=== PATIENT | female | born 1990 | race Caucasian/White ===

== ENCOUNTER 2023-09-24 08:00 | Outpatient (CLI) | payer BC ==
[2023-09-24 17:19] LABS: BILIRUBIN,URINE NEGATIVE (NEGATIVE); GLUCOSE, URINE (UA) NEGATIVE (NEGATIVE); KETONES,URINE (UA) TRACE mg/dL (NEGATIVE); LEUKOCYTE ESTERASE, URINE SMALL (NEGATIVE); NITRITE,URINE NEGATIVE (NEGATIVE); OCCULT BLOOD,URINE MODERATE (NEGATIVE); PROTEIN,URINE NEGATIVE (NEGATIVE); UROBILINOGEN,URINE 0.2 (NORMAL) E.U./dL (NORMAL)
[2023-09-24 17:21] LABS: CLARITY,URINE HAZY (CLEAR)
[2023-09-24 17:22] LABS: HCG UR QUAL NEGATIVE
[2023-09-24 17:32] LABS: BACTERIA,URINE Few /HPF (None Seen); RBC,URINE TNTC /HPF (0-5); SQUAMOUS EPITHELIAL CELL,UR MANY Squamous (<= Few)
== END 2023-09-24 23:59 | disposition home or self-care (01) ==
LOC: LAB.WCP 08:00
PROVIDERS: ATTEND Nurse Practitioner
DX: R30.0 Dysuria (principal)
CPT/HCPCS: 81001; 81025; 87086

== ENCOUNTER 2024-04-17 14:37 | Outpatient (CLI) | payer SELFPAY | END 2024-04-17 14:38 | disposition home or self-care (01) | LOC: LAB 14:37 | DX: Z00.00 Encounter for general adult medical examination without abnormal findings (principal) | CPT/HCPCS: 81599 ==

== ENCOUNTER 2024-04-19 16:44 | Outpatient (CLI) | payer SELFPAY ==
[2024-04-20 04:10] LABS: HBsAG SCREEN Negative (Negative)
[2024-04-20 12:10] LABS: MUMPS ANTIBODIES IGG 48.9 AU/mL (Immune >10.9); VARICELLA-ZOSTER AB IGG 187 index (Immune >165)
[2024-04-21 01:12] LABS: HEPATITIS B SURFACE AB QUANT <3.5 mIU/mL (Immunity>10)
== END 2024-04-19 16:45 | disposition home or self-care (01) ==
LOC: LAB 16:44
DX: Z01.84 Encounter for antibody response examination (principal)
CPT/HCPCS: 36415; 86317; 86735; 86762; 86765; 86787; 87340